=== PATIENT | male | born 1965 | race Caucasian/White ===

== ENCOUNTER 2023-07-27 17:30 | Outpatient (CLI) | payer OTHER | END 2023-07-27 17:31 | disposition home or self-care (01) | LOC: SLEEPLAB 17:30 | PROVIDERS: ATTEND Student in an Organized Health Care Education/Training Program | DX: G47.33 Obstructive sleep apnea (adult) (pediatric) (principal); R53.83 Other fatigue; R06.83 Snoring; F90.9 Attention-deficit hyperactivity disorder, unspecified type; K21.9 Gastro-esophageal reflux disease without esophagitis; G47.00 Insomnia, unspecified; G47.31 Primary central sleep apnea | CPT/HCPCS: 95800 ==